=== PATIENT | female | born 1985 | race African-American/Black ===

== ENCOUNTER 2017-12-12 05:44 | Inpatient (IN) | payer MEDICAID, OTHER ==
[~2017-12-12] VITALS: Ht 166.1 cm; Wt 66.1 kg
--- NOTE | 2017-12-12 06:08 | PD ---
HPI Chief Complaint: BA Time Seen by Provider: 06:03 Travel History International Travel<30 days: No Contact w/Intl Traveler<30days: No Traveled to known affect area: No History of Present Illness HPI This is a 32-year-old female who self reports a history of schizoaffective disorder. She presents under [place] act initiated by [facility]'s office. According her paperwork, "mohan stated that without mental health assistance she would likely harm herself or others. Mohan appears to be very paranoid. She recently started a new medication which appears to not be working. Gena has not been sleeping." Reported the patient takes trazodone and Abilify as well as another unknown medication. It is uncertain who prescribes her medications. She does not remember the last time that she slept. She is very disorganized in her thought pattern and appears to be responding to internal stimuli. She does report during examination that she frequently uses several different illicit substances such as Criss, crack, cocaine. She has no medical complaints at this time. [facility] Social History Alcohol Use: Yes (Unknown) Tobacco Use: Yes (Unknown) Substance Use: Yes Allergies-Medications (Allergen,Severity, Reaction): Coded Allergies: No Known Allergies (Unverified , 12/12/17) Reported Meds & Prescriptions Reported Meds & Active Scripts Active Review of Systems Except as stated in HPI: all other systems reviewed are Neg Physical Exam Narrative GENERAL: Well-developed well-nourished female no acute distress SKIN: Warm and dry. HEAD: Atraumatic. Normocephalic. EYES: Pupils equal and round. No scleral icterus. No injection or drainage. ENT: No nasal bleeding or discharge. Mucous membranes pink and moist. NECK: Trachea midline. No JVD. CARDIOVASCULAR: Regular rate and rhythm. No murmur appreciated. RESPIRATORY: No accessory muscle use. Clear to auscultation. Breath sounds equal bilaterally. GASTROINTESTINAL: Abdomen soft, non-tender, nondistended. Hepatic and splenic margins not palpable. MUSCULOSKELETAL: No obvious deformities. No clubbing. No cyanosis. No edema. NEUROLOGICAL: Awake and alert. No obvious cranial nerve deficits. Motor grossly within normal limits. Normal speech. PSYCHIATRIC: Disorganized thought process, rapid speech, insight and judgment impaired. Data Data Last Documented VS Orders Orders Olanzapine Inj (Zyprexa Inj) (12/12/17 06:15) Complete Blood Count With Diff (12/12/17 06:04) Comprehensive Metabolic Panel (12/12/17 06:04) Thyroid Stimulating Hormone (12/12/17 06:04) Ed Urine Pregnancytest Poc (12/12/17 06:04) Psych Screen (12/12/17 06:04) Drug Screen, Random Urine (12/12/17 06:04) Alcohol (Ethanol) (12/12/17 06:04) Diet Regular Basic (12/12/17 Lunch) Admit Order (Ed Use Only) (12/12/17 13:59) Admit To Inpatient Psych (12/12/17 ) Code Status (12/12/17 13:59) Vital Signs (Adult) MICHAEL.Q12H.E (12/12/17 13:59) Activity Oob Ad Cora (12/12/17 13:59) Level Of Observation (Psych) (12/12/17 13:59) Acetaminophen (Tylenol) (12/12/17 14:00) Magnesium Hydroxide Liq (Milk Of Magnesi (12/12/17 14:00) Al-Mag Hy-Si 40-40-4 Mg/Ml Liq (Mag-Al P (12/12/17 14:00) Nicotine 21 Mg Patch.24 Hr (Habitrol 21 (12/12/17 14:00) Basic Metabolic Panel (Bmp) (12/13/17 06:00) Lipid Profile (12/13/17 06:00) Hemoglobin (Hgb) A1c (12/13/17 06:00) Remove Old Patch (12/13/17 09:00) Labs Laboratory Tests Test 12/12/17 08:00 12/12/17 08:15 Urine Opiates Screen NEG Urine Barbiturates Screen POS Urine Amphetamines Screen NEG Urine Benzodiazepines Screen NEG Urine Cocaine Screen NEG Urine Cannabinoids Screen POS White Blood Count 7.6 TH/MM3 Red Blood Count 4.09 MIL/MM3 Hemoglobin 12.9 GM/DL Hematocrit 38.5 % Mean Corpuscular Volume 94.2 FL Mean Corpuscular Hemoglobin 31.6 PG Mean Corpuscular Hemoglobin Concent 33.6 % Red Cell Distribution Width 13.8 % Platelet Count 287 TH/MM3 Mean Platelet Volume 8.8 FL Neutrophils (%) (Auto) 63.9 % Lymphocytes (%) (Auto) 28.2 % Monocytes (%) (Auto) 6.4 % Eosinophils (%) (Auto) 0.5 % Basophils (%) (Auto) 1.0 % Neutrophils # (Auto) 4.8 TH/MM3 Lymphocytes # (Auto) 2.1 TH/MM3 Monocytes # (Auto) 0.5 TH/MM3 Eosinophils # (Auto) 0.0 TH/MM3 Basophils # (Auto) 0.1 TH/MM3 CBC Comment DIFF FINAL Differential Comment Blood Urea Nitrogen 6 MG/DL Creatinine 0.83 MG/DL Random Glucose 94 MG/DL Total Protein 8.1 GM/DL Albumin 4.3 GM/DL Calcium Level 9.2 MG/DL Alkaline Phosphatase 69 U/L Aspartate Amino Transf (AST/SGOT) 24 U/L Alanine Aminotransferase (ALT/SGPT) 24 U/L Total Bilirubin 0.3 MG/DL Sodium Level 139 MEQ/L Potassium Level 4.0 MEQ/L Chloride Level 103 MEQ/L Carbon Dioxide Level 29.4 MEQ/L Anion Gap 7 MEQ/L Estimat Glomerular Filtration Rate 95 ML/MIN Thyroid Stimulating Hormone 3rd Gen 3.030 uIU/ML Ethyl Alcohol Level LESS THAN 3 MG/DL [facility] Medical Decision Making Medical Screen Exam Complete: Yes Emergency Medical Condition: Yes Medical Record Reviewed: Yes Differential Diagnosis Bipolar disorder versus schizoaffective disorder versus schizophrenia versus substance-induced mood disorder versus sympathomimetic syndrome versus medication noncompliance Narrative Course 32-year-old female presents under [place] act for psychiatric evaluation. She has rapid pressured speech, disorganized thought process. She will be given Zyprexa Mental health screening discussed with the patient. Psychiatric screen ordered. Diagnosis Primary Impression: Medical clearance for psychiatric admission Scripts [place] Carbonate ([place] Carbonate) 300 Mg Tab 600 MG PO Q12HR for mental health, #120 TAB 0 Refills Prov: Bryn Patel MD 12/20/17 Aripiprazole (Aripiprazole) 20 Mg Tab 20 MG PO DAILY for mental health, #30 TAB 0 Refills Prov: Bryn Patel MD 12/20/17 Delvis Murillo Dec 12, 2017 06:08
[2017-12-12] MEDS ORDERED: OLANZapine IM 10 MG VIAL IM ONE ×3 (06:15→21:15)
[2017-12-12 06:20] VITALS: BP 129/66; PULSE 88; RESP 16; TEMP 98.9; O2SAT 98
[2017-12-12 08:20] VITALS: BP 128/89; PULSE 90; RESP 16; TEMP 98.6; O2SAT 100
[2017-12-12 08:38] LABS: AUTOMATED NEUTROPHIL # 4.8 TH/MM3 (1.8-7.7); BASOPHIL # 0.1 TH/MM3 (0-0.2); EOSINOPHIL % 0.5 % (0.0-4.0); HEMATOCRIT 38.5 % (35.0-46.0); HEMOGLOBIN 12.9 GM/DL (11.6-15.3); LYMPH % 28.2 % (9.0-44.0); LYMPHOCYTE # 2.1 TH/MM3 (1.0-4.8); MEAN CELL VOLUME 94.2 FL (80.0-100.0); MEAN CORPUSCULAR HEMOGLOBIN 31.6 PG (27.0-34.0); MEAN CORPUSCULAR HGB CONC 33.6 % (32.0-36.0); MEAN PLATELET VOLUME 8.8 FL (7.0-11.0); MONO % 6.4 % (0.0-8.0); MONOCYTE # 0.5 TH/MM3 (0-0.9); NEUT % 63.9 % (16.0-70.0); PLATELET COUNT 287 TH/MM3 (150-450); RED BLOOD COUNT 4.09 MIL/MM3 (4.00-5.30); RED CELL DISTRIBUTION WIDTH 13.8 % (11.6-17.2); WHITE BLOOD COUNT 7.6 TH/MM3 (4.0-11.0)
[2017-12-12 09:05] LABS: ALBUMIN 4.3 GM/DL (3.4-5.0); AST (GOT) 24 U/L (15-37); BICARBONATE 29.4 MEQ/L (21.0-32.0); BLOOD UREA NITROGEN 6 MG/DL (7-18); CALCIUM 9.2 MG/DL (8.5-10.1); CHLORIDE 103 MEQ/L (98-107); CREATININE 0.83 MG/DL (0.50-1.00); GLOMERULAR FILTRATION RATE 95 ML/MIN (>89); GLUCOSE,RANDOM 94 MG/DL (74-106); SODIUM (NA) 139 MEQ/L (136-145)
[2017-12-12 09:06] LABS: ALT (GPT) 24 U/L (10-53)
[2017-12-12 09:16] LABS: ALKALINE PHOSPHATASE 69 U/L (45-117); TOTAL BILIRUBIN ADULT 0.3 MG/DL (0.2-1.0); TOTAL PROTEIN 8.1 GM/DL (6.4-8.2)
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
[2017-12-12] MEDS ORDERED: MAGNESIUM HYDROXIDE SUSP 30 ML CUP PO PRN (14:00)
[2017-12-12] MEDS ORDERED: ALUMINUM/MAGNESIUM/SIMETH 30 ML CUP PO PRN (14:00)
[2017-12-12] MEDS: NICOTINE 21 MG/24 HR PATCH T-DERMAL SCH (14:00)
[2017-12-12] MEDS ORDERED: ACETAMINOPHEN 325 MG TAB PO PRN (14:00)
[2017-12-12 16:57] VITALS: BP 125/85; PULSE 81; RESP 18; TEMP 98; O2SAT 99
[2017-12-12] MEDS: REMOVE OLD PATCH T-DERMAL SCH (18:16)
[2017-12-12] MEDS ORDERED: diphenhydrAMINE HCL 50 MG/ML VIAL ONE (20:52)
[2017-12-12] MEDS ORDERED: diphenhydrAMINE HCL 50 MG/ML VIAL IM ONE (21:15)
[2017-12-13] MEDS ORDERED: LORazepam 2 MG/ML VIAL ONE (00:13)
[2017-12-13] MEDS ORDERED: HALOPERIDOL LACTATE 5 MG/ML AMP ONE (00:14)
[2017-12-13] MEDS ORDERED: HALOPERIDOL LACTATE 5 MG/ML AMP IM ONE (00:30)
[2017-12-13] MEDS ORDERED: diphenhydrAMINE HCL 50 MG/ML VIAL IM ONE (00:30)
[2017-12-13] MEDS ORDERED: LORazepam 2 MG/ML VIAL IM ONE (00:30)
[2017-12-13 06:40] VITALS: BP 112/66; PULSE 114; RESP 16; TEMP 97; O2SAT 100
[2017-12-13] MEDS: NICOTINE 21 MG/24 HR PATCH T-DERMAL SCH (09:00)
--- NOTE | 2017-12-13 11:37 | HHI.HP ---
Provisional Diagnosis Admission Date Dec 12, 2017 at 14:02 [place] I. 1. Schizoaffective disorder, other type 2. Urine toxicology positive for barbiturates and cannabinoids [place] II. Deferred Certification of Person's Competence To Provide Express and Informed Consent I have personally examined Elizabeth Preston , a person being served at [facility] on, Dec 13, 2017 11:37. Express and informed consent means consent voluntarily given in writing, by a competent person, after sufficient explanation and disclosure of the subject matter involved to enable the person to make a knowing and willful decision without any element of force, fraud, deceit, duress, or other form of constraint or coercion. This person is 18 years of age or older, is not now known to be incompetent to consent to treatment with a guardian advocate, and does not have a health care surrogate or proxy currently making medical treatment decisions. I have found this person to be one of the following: [] Competent to provide express and informed consent, as defined above, for voluntary admission to this facility and is competent to provide express and informed consent for treatment. He/she has the consistent capacity to make well reasoned, willful, and knowing decisions concerning his or her medical or mental health treatment. The person fully and consistently understands the purpose of the admission for examination/placement and is fully capable of personally exercising all rights [place] [X] Incompetent to provide express and informed consent to voluntary admission, and this is incompetent to provide express and informed consent to treatment. The person must be transferred to involuntary status and a petition for a guardian advocate filed with the Circuit Court. [] Refusing to provide express and informed consent to voluntary admission but is competent to provide express and informed consent for treatment. The person must be discharged or transferred to involuntary status. Form shall be completed within 24 hours of a person's arrival at the receiving facility and filed in the clinical record of each person: 1. Admitted on a voluntary basis 2. Permitted to provide express and informed consent to his/her own treatment 3. Allowed to transfer from involuntary to voluntary status 4. Prior to permitting a person to consent to his or her own treatment after having been previously found incompetent to consent to treatment. History of Present Illness Capacity: Lacks Capacity Psych Chief Complaint: Psychosis HPI Ms. Preston is a 32-year-old female with a history of schizoaffective disorder who presents under Milton Act from [facility] alleging paranoia. Patient was evaluated by SIRENA Macedo in the ED, and I reviewed her note. Reviewing the electronic medical record, it appears this is patient's first visit to [facility]. I endeavored to see patient with nurse, but patient twice refused to come with staff to be interviewed by this provider. Per RN, behavior on the unit has been considerably disturbed. She was noted to be threatening staff and exposing herself overnight. She has required 2 ETO orders, one for Haldol and one for Zyprexa, since arriving on the interview. Psychiatric interview limited as patient is uncooperative. Obtained collateral information from patient's mother Christi Bedoya at [phone]: She notes that the patient has a history of schizoaffective disorder diagnosed ~ 3 years ago. She follows psychiatrically at [facility] and was apparently recently hospitalized on their inpatient unit and started on Abilify Maintena on 12/04 with oral supplementation, although mother does not think this is helping. She had previously done well with PO Abilify per mother's report. Mother notes that the patient has been hospitalized 4 times since September. Mother reports that patient is adherent with psychotropic medications including oral Abilify supplementation but they do not seem to be helping. Mother notes that the patient has not been sleeping. She has no allergies to medications but may have experienced some motor side effects from antipsychotic treatment in the past. She does have a history of suicide attempts in the past. Regarding family history, mother notes that the patient's maternal grandmother has bipolar disorder and she has a brother with primary psychotic disorder. There is no family history of suicide that mother is aware of. 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 Regarding social history: Patient resides independently in an apartment across the hallway from mother's apartment. Mother is willing to act as healthcare surrogate and is in agreement with the plan as outlined below. We discuss unit routines such as visitation and also discuss legal status and Milton act court. Review of Systems ROS Limitations: Uncooperative Other Unable to obtain ROS as patient is uncooperative Past Psych History Psychological trauma history Unable to obtain, patient uncooperative Violence risk - others (6 mos) Concern for elevated risk. Violence risk - self (6 mos) Concern for elevated risk Substance Abuse History Drugs/Alcohol past 12 months Unable to obtain from patient, uncooperative Past Family Social History Coded Allergies: No Known Allergies (Unverified , 12/12/17) Past Medical History Unable to obtain from patient, uncooperative Current Medications Medications (Trade) Dose Ordered Sig/Yvan Route Start Time Stop Time Status Last Admin (Tylenol) 650 mg Q4H PRN PO 12/12/17 14:00 (Milk Of Magnesia Liq) 30 ml DAILY PRN PO 12/12/17 14:00 (Mag-Al Plus Susp Liq) 30 ml Q6H PRN PO 12/12/17 14:00 (Habitrol 21 Mg Patch.24 Hr) 1 patch DAILY T-DERMAL 12/12/17 14:00 12/12/17 14:00 Miscellaneous Information 1 DAILY T-DERMAL 12/13/17 09:00 Family Psych History Unable to obtain from patient, uncooperative Social History Unable to obtain from patient, uncooperative Patient's Strengths (min. 2) Supportive mother. In a monitored setting. Physical Exam Unable to obtain, uncooperative. ED provider PE reviewed. Labs and vitals reviewed: Vital Signs Vital Signs Date Time Temp Pulse Resp B/P (MAP) Pulse Ox O2 Delivery O2 Flow Rate FiO2 12/13/17 06:40 97.0 114 16 112/66 (81) 100 12/12/17 08:20 Room Air Lab Results Item Value Date Time White Blood Count 7.6 TH/MM3 12/12/17 0815 Hemoglobin 12.9 GM/DL 12/12/17 0815 Platelet Count 287 TH/MM3 12/12/17 0815 Sodium Level 139 MEQ/L 12/12/17 0815 Potassium Level 4.0 MEQ/L 12/12/17 0815 Chloride Level 103 MEQ/L 12/12/17 0815 Carbon Dioxide Level 29.4 MEQ/L 12/12/17 0815 Blood Urea Nitrogen 6 MG/DL L 12/12/17 0815 Creatinine 0.83 MG/DL 12/12/17 0815 Estimat Glomerular Filtration Rate 95 ML/MIN 12/12/17 0815 Aspartate Amino Transf (AST/SGOT) 24 U/L 12/12/17 0815 Alanine Aminotransferase (ALT/SGPT) 24 U/L 12/12/17 0815 Alkaline Phosphatase 69 U/L 12/12/17 0815 Thyroid Stimulating Hormone 3rd Gen 3.030 uIU/ML 12/12/17 0815 Urine Amphetamines Screen NEG 12/12/17 0800 Urine Barbiturates Screen POS H 12/12/17 0800 Urine Opiates Screen NEG 12/12/17 0800 Urine Benzodiazepines Screen NEG 12/12/17 0800 Urine Cocaine Screen NEG 12/12/17 0800 Urine Cannabinoids Screen POS H 12/12/17 0800 Ethyl Alcohol Level LESS THAN 3 MG/DL 12/12/17 0815 ED [id number] test negative. Patient refused EKG. Mental Status Examination Appearance: Disheveled Consciousness: Alert Affect: Other (dysphoric) Hallucination Type: Other (appears internally stimulated) Insight: Poor (suspect poor) Judgment: Poor (suspect poor) Mental Status Exam Remarks Limited MSE, patient uncooperative. Assessment & Plan Problem List: (1) Other schizoaffective disorders ICD Codes: F25.8 - Other schizoaffective disorders Assessment & Plan 32-year-old female with psychiatric history as detailed above who presents under Milton act. Patient is uncooperative with evaluation today but behavior on the unit has been quite disturbed, and she has required two ETOs since arriving on the unit. Collateral from mother concerning for worsening of patient's reported schizoaffective disorder, and mother reports patient has had 4 hospitalizations since the beginning of this year. Patient requires psychiatric hospitalization at this time for safety, observation and stabilization. Admit inpatient. Involuntary status. I will endeavor to have the patient participate in some degree of interview with me and thereafter complete first opinion and plan to consult for second opinion, and the weight of evidence is sufficient to support involuntary hospitalization at this point. I will request healthcare surrogate/guardian advocate as patient is unable to negotiate treatment at this point, I suspect as a consequence of psychiatric symptoms. For management of severe agitation, Zyprexa 10 mg IM every 12 hours p.r.n.. Ativan as needed for anxiety. Benadryl as needed for EPS/insomnia. Provenance of barbiturates in [place] is unclear; start CIWA with Ativan for management of any barbiturate withdrawal. R/B/A for meds discussed with patient 's healthcare surrogate. Vitals every shift. Counselor to see. Disposition planning. Estimated length of stay: 7-9 days. Discharge Planning Pending psychiatric stabilization Request HC Surrog/Guard Advoc?: Yes Kareem Bunch MD Dec 13, 2017 11:37
[2017-12-13] MEDS ORDERED: OLANZapine IM 10 MG VIAL IM PRN (14:00)
[2017-12-13] MEDS ORDERED: LORazepam 1 MG TAB PO PRN (14:00)
[2017-12-13] MEDS ORDERED: LORazepam 2 MG/ML VIAL IM PRN (14:00)
[2017-12-13] MEDS: diphenhydrAMINE HCL 50 MG/ML VIAL IM PRN (14:15)
[2017-12-13] MEDS ORDERED: FLUMAZENIL 0.5 MG/5 ML VIAL IV PUSH PRN (14:30)
[2017-12-13] MEDS ORDERED: LORazepam 2 MG/ML VIAL IV PUSH PRN ×4 (14:30)
[2017-12-13] MEDS ORDERED: LORazepam 2 MG/ML VIAL IM STA (15:47)
[2017-12-13] MEDS ORDERED: diphenhydrAMINE HCL 50 MG/ML VIAL IM STA (15:47)
[2017-12-13] MEDS ORDERED: HALOPERIDOL LACTATE 5 MG/ML AMP IM STA (15:47)
[2017-12-13 18:09] VITALS: PULSE 100; RESP 17; TEMP 97.1; O2SAT 99
[2017-12-13] MEDS: LORazepam 2 MG TAB PO PRN (20:52)
[2017-12-14] MEDS: diphenhydrAMINE HCL 50 MG CAP PO PRN (01:16)
[2017-12-14] MEDS: LORazepam 2 MG TAB PO PRN ×5 (01:16→21:15)
[2017-12-14 05:50] VITALS: BP 122/88; PULSE 86; RESP 18; TEMP 98.3; O2SAT 99
[2017-12-14] MEDS: REMOVE OLD PATCH T-DERMAL SCH (09:00)
[2017-12-14] MEDS: NICOTINE 21 MG/24 HR PATCH T-DERMAL SCH (09:00)
--- NOTE | 2017-12-14 09:32 | HHI.PYPN ---
Subjective Chief Complaint: Psychosis Remarks Patient seen and examined in the day area. Chart reviewed. Case discussed with nursing staff. Ongoing issues with agitation and inappropriate behavior throughout the night and into this morning. Case discussed in treatment team. On my examination today, the patient does agree to participate in interview. She is quite disheveled. She appears internally preoccupied. She is paranoid. She exhibits a racial preoccupation. She endeavors to split staff and peers. Affect is irritable and dysphoric. No side effects from medications. No physical complaints. Spoke with patient's mother/healthcare surrogate and obtained consent for medication changes as detailed below. Review of Systems ROS Limitations: Psychotic, Poor Historian Except as stated in HPI: all other systems reviewed are Neg Mental Status Examination Appearance: Disheveled Consciousness: Alert Orientation: Person, Place (at least) Motor Activity: Other (no motor abnormalities noted) Speech: Unremarkable Language: [place] Attention and Concentration: Inadequate Memory: Impaired (psychosis interferes) Mood: Other (dysphoric) Affect: Irritable, Other (dysphoric) Thought Process & Associations: Tangential Thought Content: Hallucinations, Delusional Hallucination Type: Other (internally stimulated) Delusion Type: Paranoid Suicidal Ideation: No (unreliable to contract for safety) Homicidal Ideation: No (unreliable to contract for safety) Insight: Poor Judgment: Poor Results Labs Labs reviewed Vitals/IOs Vital Signs Date Time Temp Pulse Resp B/P (MAP) Pulse Ox O2 Delivery O2 Flow Rate FiO2 12/14/17 05:50 98.3 86 18 122/88 (99) 99 12/12/17 08:20 Room Air Assessment & Plan Problem List: (1) Other schizoaffective disorders ICD Codes: F25.8 - Other schizoaffective disorders Assessment & Plan Initiate oral Abilify to supplement Abilify Maintena, reportedly administered ~ 10 days ago. Add lithium 300mg BID for affective component of patient's illness. GFR and TSH within normal limits. ED [id number] test negative. Plan to check a lithium level after the weekend. Replace Zyprexa p.r.n. with Thorazine 100mg IM p.r.n. severe agitation as the former does not seem to be effective. Titrate Ativan p.r.n. to 2mg/dose. R/B/A for med changes discussed with mother. Continue to monitor on high acuity unit. Continue other medications and care as ordered. Justification for Cont. Inpt. Medication changes. Impairment in reality construction. High risk for decompensation in less restrictive environment. Discharge Planning Pending psychiatric stabilization. Request HC Surrog/Guard Advoc?: Yes Kareem Bunch MD Dec 14, 2017 09:32
--- NOTE | 2017-12-14 09:50 | PD.TTN ---
Patient Problems 1. Discharge planning 2. Medication compliance 3. Knowledge deficit 4. Lack of coping skills Progress Toward Goals Provider Present: Dr. Chris Bunch Provider Input: Dr. Bunch's had his treatment team to discuss patient's treatment plan, medication, and discharge plan. Patient is selectively mute, agitated unable to access due to lack of participation. Nurse(s) Input: Patient's nurse reports patient is difficult, difiant, oppositional needing several ETO's yesterday. Psychiatric Counselors Present: Gemma Bojorquez [facility] Psych Therapist Input: Patient presents agitated, iritable, no wanting to talk. Group Spec/RT/OT/GRIER Present: MARVEL Cat Group Spec/RT/OT/GRIER Input: Patient does not attend groups. Gemma Bojorquez [facility] Dec 14, 2017 09:50
[2017-12-14] MEDS: ARIPiprazole 10 MG TAB PO SCH (11:33)
[2017-12-14] MEDS: LITHIUM CARBONATE 300 MG TAB PO SCH ×2 (11:33→21:00)
--- NOTE | 2017-12-14 11:41 | PD.PSY.CON ---
Provisional Diagnosis Admission Date Dec 12, 2017 at 14:02 [place] I. 1. Schizoaffective disorder, other type 2. Urine toxicology positive for barbiturates and cannabinoids [place] II. Deferred History of Present Illness Service Psychiatry Consult Requested By Dr. Bunch Reason for Consult Second opinion Primary Care Physician Unknown HPI Ms. Preston is a 32-year-old female with a history of schizoaffective disorder who presents under [place] Act from [facility] alleging paranoia. Patient was evaluated by SIRENA Macedo in the ED, and I reviewed her note. Reviewing the electronic medical record, it appears this is patient's first visit to [facility]. I endeavored to see patient with nurse, but patient twice refused to come with staff to be interviewed by this provider. Per RN, behavior on the unit has been considerably disturbed. She was noted to be threatening staff and exposing herself overnight. She has required 2 ETO orders, one for Haldol and one for Zyprexa, since arriving on the interview. Psychiatric interview limited as patient is uncooperative. Obtained collateral information from patient's mother Christi Bedoya at [phone]: She notes that the patient has a history of schizoaffective disorder diagnosed ~ 3 years ago. She follows psychiatrically at [facility] and was apparently recently hospitalized on their inpatient unit and started on Abilify Maintena on 12/04 with oral supplementation, although mother does not think this is helping. She had previously done well with PO Abilify per mother's report. Mother notes that the patient has been hospitalized 4 times since September. Mother reports that patient is adherent with psychotropic medications including oral Abilify supplementation but they do not seem to be helping. Mother notes that the patient has not been sleeping. She has no allergies to medications but may have experienced some motor side effects from antipsychotic treatment in the past. She does have a history of suicide attempts in the past. Regarding family history, mother notes that the patient's maternal grandmother has bipolar disorder and she has a brother with primary psychotic disorder. There is no family history of suicide that mother is aware of. 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 Regarding social history: Patient resides independently in an apartment across the hallway from mother's apartment. Mother is willing to act as healthcare surrogate and is in agreement with the plan as outlined below. We discuss unit routines such as visitation and also discuss legal status and [employer] act court. 12/14/17 - Second opinion Patient is a 32-year-old -[place] woman, who carries a diagnosis of schizoaffective disorder previous psychiatric admissions, who was recently brought in under [place] act that stated the patient likely to harm herself and others, appearing to be very paranoid and has not been sleeping which patient was admitted to the inpatient psychiatry for further evaluation and management. Patient was observed on the unit to be intrusive, labile, yelling at times but during interview was, cooperative. Patient was adherent to medications morning. Patient states that she was "trippin" at her aunts residence as well as feeling paranoid believing that someone was outside and at rest and called the police which then brought patient into the hospital. Patient states she had been feeling paranoid for a while, no one specific but in general. Patient states that she has an outpatient psychiatrist, Dr. Munguia, but feels he/she has not been helpful. She denies having any suicide ideations, denies any perceptional services but continues to have some paranoid ideations. Past Family Social History Coded Allergies: No Known Allergies (Unverified , 12/12/17) Current Medications Medications (Trade) Dose Ordered Sig/Yvan Route Start Time Stop Time Status Last Admin (Tylenol) 650 mg Q4H PRN PO 12/12/17 14:00 (Milk Of Magnesia Liq) 30 ml DAILY PRN PO 12/12/17 14:00 (Mag-Al Plus Susp Liq) 30 ml Q6H PRN PO 12/12/17 14:00 (Habitrol 21 Mg Patch.24 Hr) 1 patch DAILY T-DERMAL 12/12/17 14:00 12/12/17 14:00 Miscellaneous Information 1 DAILY T-DERMAL 12/13/17 09:00 (Benadryl) 50 mg Q6H PRN PO 12/13/17 14:00 12/14/17 01:16 (Benadryl Inj) 50 mg Q6H PRN IM 12/13/17 14:00 12/13/17 14:15 (Romazicon Inj) 0.2 mg Q1M PRN IV PUSH 12/13/17 14:30 (Ativan) 1 mg Q4H PRN PO 12/13/17 14:30 (Ativan Inj) 1 mg Q4H PRN IV PUSH 12/13/17 14:30 (Ativan) 2 mg Q2H PRN PO 12/13/17 14:30 12/14/17 01:16 (Ativan Inj) 2 mg Q2H PRN IV PUSH 12/13/17 14:30 (Ativan Inj) 2 mg Q1H PRN IV PUSH 12/13/17 14:30 (Ativan Inj) 2 mg Q15M PRN IV PUSH 12/13/17 14:30 (Ativan) 2 mg Q6H PRN PO 12/14/17 14:00 12/14/17 08:40 (Ativan Inj) 2 mg Q6H PRN IM 12/14/17 14:00 (Thorazine Inj) 100 mg Q6H PRN IM 12/14/17 09:45 (Lithotabs) 300 mg Q12HR PO 12/14/17 09:45 (Abilify) 10 mg DAILY PO 12/14/17 09:45 Patient's Strengths (min. 2) Supportive mother. In a monitored setting. Physical Exam Vital Signs Vital Signs Date Time Temp Pulse Resp B/P (MAP) Pulse Ox O2 Delivery O2 Flow Rate FiO2 12/14/17 05:50 98.3 86 18 122/88 (99) 99 12/12/17 08:20 Room Air Mental Status Examination Appearance: Disheveled Consciousness: Alert Motor Activity: Normal gait Speech: Unremarkable Language: Adequate Fund of Knowledge: Inadequate Attention and Concentration: Adequate Memory: Unremarkable Mood: Other ("Okay") Affect: Other (dysphoric) Thought Process & Associations: Other ([place]) Thought Content: Delusional Hallucination Type: None, Other (appears internally stimulated) Delusion Type: Paranoid Suicidal Ideation: No Suicidal Plan: No Suicidal Intention: No Homicidal Ideation: No Homicidal Plan: No Homicidal Intention: No Insight: Poor (suspect poor) Judgment: Poor (suspect poor) Assessment & Plan Problem List: (1) Other schizoaffective disorders ICD Codes: F25.8 - Other schizoaffective disorders Assessment & Plan I have seen and examined this patient, reviewed the documentation, discussed personally with Dr. Bunch, and I agree and concur with his assessment and plan. Consult appreciated. Request HC Surrog/Guard Advoc?: Yes El Scanlon MD Dec 14, 2017 11:41
[2017-12-14 13:10] LABS: BICARBONATE 26.1 MEQ/L (21.0-32.0); BLOOD UREA NITROGEN 13 MG/DL (7-18); CALCIUM 9.1 MG/DL (8.5-10.1); CHLORIDE 103 MEQ/L (98-107); CREATININE 0.87 MG/DL (0.50-1.00); GLOMERULAR FILTRATION RATE 90 ML/MIN (>89); GLUCOSE,RANDOM 120 MG/DL (74-106); SODIUM (NA) 136 MEQ/L (136-145)
[2017-12-14 13:11] LABS: CHOLESTEROL 149 MG/DL (120-200)
[2017-12-14 13:13] LABS: CHOLESTEROL/ HDL RATIO 2.71 RATIO; HDL CHOLESTEROL 54.8 MG/DL (40.0-60.0); LDL CHOLESTEROL 84 MG/DL (0-99); TRIGLYCERIDES 49 MG/DL (42-150)
[2017-12-14 18:00] VITALS: BP 108/73; PULSE 123; RESP 16; TEMP 98.5; O2SAT 98
[2017-12-14 19:42] LABS: HEMOGLOBIN A1C 4.5 % (4.3-6.0)
[2017-12-14] MEDS: LORazepam 2 MG/ML VIAL IM PRN (22:00)
[2017-12-15] MEDS: LORazepam 2 MG TAB PO PRN (02:58)
[2017-12-15] MEDS: LITHIUM CARBONATE 300 MG TAB PO SCH ×2 (08:18→20:17)
[2017-12-15] MEDS: ARIPiprazole 10 MG TAB PO SCH (08:18)
[2017-12-15] MEDS: REMOVE OLD PATCH T-DERMAL SCH (08:52)
[2017-12-15] MEDS: NICOTINE 21 MG/24 HR PATCH T-DERMAL SCH (08:52)
--- NOTE | 2017-12-15 16:56 | HHI.PYPN ---
Subjective Chief Complaint: Psychosis Remarks Pt seen and discussed with staff. She has been compliant with care and medications. She denies hallucinations but has been engaging in bizarre behavior and became agitated this afternoon with peer and had to be escorted to room. She is paranoid and somewhat disorganized in thought process. Mental Status Examination Appearance: Disheveled Consciousness: Alert Orientation: Person, Place (at least) Motor Activity: Other (no motor abnormalities noted) Speech: Unremarkable Language: [place] Fund of Knowledge: Inadequate Attention and Concentration: Inadequate Memory: Impaired (psychosis interferes) Mood: Other (dysphoric) Affect: Irritable, Other (dysphoric) Thought Process & Associations: Tangential Thought Content: Hallucinations, Delusional Hallucination Type: Other (internally stimulated) Delusion Type: Paranoid Suicidal Ideation: No (unreliable to contract for safety) Suicidal Plan: No Suicidal Intention: No Homicidal Ideation: No (unreliable to contract for safety) Homicidal Plan: No Homicidal Intention: No Insight: Poor Judgment: Poor Results Vitals/IOs Vital Signs Date Time Temp Pulse Resp B/P (MAP) Pulse Ox O2 Delivery O2 Flow Rate FiO2 12/14/17 18:00 98.5 123 16 108/73 (85) 98 12/12/17 08:20 Room Air Assessment & Plan Problem List: (1) Other schizoaffective disorders ICD Codes: F25.8 - Other schizoaffective disorders Assessment & Plan Continue current tx plan. Estimated LOS: days Justification for Cont. Inpt. psychosis agitation Request HC Surrog/Guard Advoc?: Yes Christine Shukla MD Dec 15, 2017 16:56
[2017-12-15] MEDS: LORazepam 1 MG TAB PO PRN (17:20)
[2017-12-15 18:10] VITALS: BP 125/60; PULSE 111; RESP 17; TEMP 98.8; O2SAT 97
[2017-12-16 05:48] VITALS: BP 125/89; PULSE 106; RESP 19; TEMP 97.9; O2SAT 97
[2017-12-16] MEDS: LITHIUM CARBONATE 300 MG TAB PO SCH ×2 (08:45→20:34)
[2017-12-16] MEDS: ARIPiprazole 10 MG TAB PO SCH (08:45)
[2017-12-16] MEDS: LORazepam 1 MG TAB PO PRN ×2 (08:45→14:29)
[2017-12-16] MEDS: REMOVE OLD PATCH T-DERMAL SCH (08:47)
[2017-12-16] MEDS: NICOTINE 21 MG/24 HR PATCH T-DERMAL SCH (08:48)
[2017-12-16 15:35] VITALS: BP 136/83; PULSE 127; RESP 18; TEMP 96.4; O2SAT 99
--- NOTE | 2017-12-16 16:00 | HHI.PYPN ---
Subjective Chief Complaint: Psychosis Remarks Pt seen and discussed with staff. Last night she slept poorly due to pacing halls and talking to self. Today she has been calmer but has been observed responding to internal stimuli.she reports that mood is better today but she continues to hear AH. She denies side effects. Staff report that pt aggressively postured towards peer (mutual aggression) and staff intervened. Pt calmed and has been able to participate in unit activities. Mental Status Examination Appearance: Disheveled Consciousness: Alert Orientation: Person, Place (at least) Motor Activity: Other (no motor abnormalities noted) Speech: Unremarkable Language: [place] Fund of Knowledge: Inadequate Attention and Concentration: Inadequate Memory: Impaired (psychosis interferes) Mood: Other (dysphoric) Affect: Irritable, Other (dysphoric) Thought Process & Associations: Tangential Thought Content: Hallucinations, Delusional Hallucination Type: Other (internally stimulated) Delusion Type: Paranoid Suicidal Ideation: No (unreliable to contract for safety) Suicidal Plan: No Suicidal Intention: No Homicidal Ideation: No (unreliable to contract for safety) Homicidal Plan: No Homicidal Intention: No Insight: Poor Judgment: Poor Results Vitals/IOs Vital Signs Date Time Temp Pulse Resp B/P (MAP) Pulse Ox O2 Delivery O2 Flow Rate FiO2 12/16/17 15:35 96.4 127 18 136/83 (100) 99 12/12/17 08:20 Room Air Assessment & Plan Problem List: (1) Other schizoaffective disorders ICD Codes: F25.8 - Other schizoaffective disorders Assessment & Plan Continue current tx plan. Estimated LOS: days Justification for Cont. Inpt. impairments in reality testing and impulse control Request HC Surrog/Guard Advoc?: Yes Christine Shukla MD Dec 16, 2017 16:00
[2017-12-16] MEDS: LORazepam 2 MG TAB PO PRN (20:34)
[2017-12-17] MEDS: diphenhydrAMINE HCL 50 MG CAP PO PRN (00:28)
[2017-12-17] MEDS: LORazepam 2 MG TAB PO PRN (02:19)
[2017-12-17 05:47] VITALS: BP 123/78; PULSE 98; RESP 16; TEMP 98.4; O2SAT 97
[2017-12-17] MEDS: NICOTINE 21 MG/24 HR PATCH T-DERMAL SCH ×2 (08:24→09:00)
[2017-12-17] MEDS: LITHIUM CARBONATE 300 MG TAB PO SCH ×2 (08:25→20:47)
[2017-12-17] MEDS: ARIPiprazole 10 MG TAB PO SCH (08:25)
[2017-12-17] MEDS: REMOVE OLD PATCH T-DERMAL SCH (09:00)
--- NOTE | 2017-12-17 09:32 | HHI.PYPN ---
Subjective Chief Complaint: Psychosis Remarks Patient seen and examined. Chart reviewed. Patient has not required a Thorazine IM injection since 12/14. Case discussed with nursing staff who reports patient remains quite paranoid. Case discussed with counselor. Counselor to reach out to patient's mother today. On my examination today, the patient says "I'm not paranoid anymore. I'm nervous because I'm outnumbered. They're trying to do things to keep me here longer. Someone slid information. I am not a man, I am a female." Affect remains fairly labile. She denies any suicidal or homicidal ideation but is unreliable to contract for safety. Appears internally stimulated. No side effects from medications. No physical complaints. Review of Systems ROS Limitations: Psychotic, Poor Historian Except as stated in HPI: all other systems reviewed are Neg Mental Status Examination Appearance: Disheveled (grooming improved somewhat) Consciousness: Alert Orientation: Person, Place (at least) Motor Activity: Other (no abnormal motor movements noted) Speech: Unremarkable Language: Adequate Fund of Knowledge: Adequate Attention and Concentration: Easily Distracted Memory: Impaired (psychosis interferes) Mood: Irritable Affect: Irritable, Labile Thought Process & Associations: Tangential Thought Content: Hallucinations, Delusional Hallucination Type: Other (remains internally stimulated) Delusion Type: Paranoid Suicidal Ideation: No (unreliable to contract for safety) Suicidal Plan: No Suicidal Intention: No Homicidal Ideation: No (unreliable to contract for safety) Homicidal Plan: No Homicidal Intention: No Insight: Poor Judgment: Poor Results Labs Test 12/17/17 06:00 [place] Level 0.3 MEQ/L Labs reviewed. [place] level subtherapeutic. Besides one episode of medication refusal, nonadherence is not suspected. Vitals/IOs Vital Signs Date Time Temp Pulse Resp B/P (MAP) Pulse Ox O2 Delivery O2 Flow Rate FiO2 12/17/17 05:47 98.4 98 16 123/78 (93) 97 Assessment & Plan Problem List: (1) Other schizoaffective disorders ICD Codes: F25.8 - Other schizoaffective disorders Assessment & Plan Inadequate response to current therapy. Titrate oral Abilify to 15 mg daily to target psychotic symptoms. Titrate lithium to 600 mg twice daily for mood stabilization with plans for follow-up lithium level later in the week. Continue to monitor on the high acuity unit. Continue other medications and care as ordered. Justification for Cont. Inpt. Impairment in reality construction. Impairment in social functioning. Medication changes. High risk for decompensation in less restrictive environment. Discharge Planning Pending psychiatric stabilization. Request HC Surrog/Guard Advoc?: Yes Kareem Bunch MD Dec 17, 2017 09:32
[2017-12-17 15:37] VITALS: BP 145/93; PULSE 136; RESP 18; TEMP 98.7; O2SAT 98
[2017-12-17] MEDS: LORazepam 2 MG/ML VIAL IM PRN (22:44)
[2017-12-18 06:22] VITALS: BP 136/87; PULSE 112; RESP 18; TEMP 98.4
[2017-12-18] MEDS ORDERED: ARIPiprazole 15 MG TAB PO SCH (09:00)
[2017-12-18] MEDS: REMOVE OLD PATCH T-DERMAL SCH (09:00)
[2017-12-18] MEDS: LITHIUM CARBONATE 300 MG TAB PO SCH ×2 (09:08→20:15)
[2017-12-18] MEDS: NICOTINE 21 MG/24 HR PATCH T-DERMAL SCH (09:09)
--- NOTE | 2017-12-18 09:35 | PD.TTN ---
Patient Problems 1. Discharge planning 2. Medication compliance 3. Knowledge deficit 4. Lack of coping skills Progress Toward Goals Provider Present: Dr. Chris Bunch Provider Input: 12/18/17 - Patient remains aggressive and oppositional. She required an ETO of Thorazine last evening. Dr. Bunch's had his treatment team to discuss patient's treatment plan, medication, and discharge plan. Patient is selectively mute, agitated unable to access due to lack of participation. Nurse(s) Input: Patient's nurse reports patient is difficult, difiant, oppositional needing several ETO's yesterday. Patient is presently taking [place] and Ailify. Psychiatric Counselors Present: Gemma Bojorquez [facility] Psych Therapist Input: 12/18/17 - Patient remains aggressive and oppositional. Patient presents agitated, iritable, no wanting to talk. Group Spec/RT/OT/GRIER Present: MARVEL Cat Group Spec/RT/OT/GRIER Input: 12/18/17 - Patient does not attend groups. Patient does not attend groups. Discharge Plan SMA 12/18/17 - Patient will return home when stable. Documentation Scribe: LOS Sanders Date Resolved: Dec 18, 2017 [facility]ie Ma [facility] Dec 18, 2017 09:35
--- NOTE | 2017-12-18 09:49 | HHI.PYPN ---
Subjective Chief Complaint: Psychosis Remarks Patient seen and examined in hallway outside of her room. Chart reviewed. Case discussed with nursing staff. Patient had outburst yesterday evening and required Thorazine IM p.r.n. but has been no behavioral problem since then. Case discussed in treatment team. On my exam, patient seems calmer and less paranoid versus our interaction yesterday. She is more relevant in conversation. She denies SI/HI. No side effects from medications. No physical complaints. Review of Systems ROS Limitations: Psychotic, Poor Historian Except as stated in HPI: all other systems reviewed are Neg Mental Status Examination Appearance: Appropriate Consciousness: Alert Orientation: Person, Place (at least) Motor Activity: Other (no motoric abnormalities noted) Speech: Unremarkable Language: Adequate Fund of Knowledge: Adequate Attention and Concentration: Other (attention and concentration are improved) Memory: Impaired (psychosis continues to interfere) Mood: Other (calmer) Affect: Blunt Thought Process & Associations: Other (more organized today) Thought Content: Hallucinations, Delusional Hallucination Type: Other (less internally stimulated) Delusion Type: Paranoid (less paranoid) Suicidal Ideation: No (unreliable to contract for safety) Suicidal Plan: No Suicidal Intention: No Homicidal Ideation: No (unreliable to contract for safety) Homicidal Plan: No Homicidal Intention: No Insight: Poor Judgment: Poor Results Labs Labs reviewed. No new labs. Vitals/IOs Vital Signs Date Time Temp Pulse Resp B/P (MAP) Pulse Ox O2 Delivery O2 Flow Rate FiO2 12/18/17 06:22 98.4 112 18 136/87 (103) 12/17/17 15:37 98 Assessment & Plan Problem List: (1) Other schizoaffective disorders ICD Codes: F25.8 - Other schizoaffective disorders Assessment & Plan Titrate Abilify to target residual psychotic symptoms. Continue increased dose of lithium and plan to check a lithium level later this week. Continue to monitor on the high acuity unit. Continue other medications and care as ordered. Justification for Cont. Inpt. Medication changes. Impairment in reality construction. High risk for decompensation in less restrictive environment. Discharge Planning Pending psychiatric stabilization. Request HC Surrog/Guard Advoc?: Yes Kareem Bunch MD Dec 18, 2017 09:49
[2017-12-18 18:33] VITALS: BP 123/97; PULSE 127; RESP 18; TEMP 97.1; O2SAT 98
[2017-12-18] MEDS: LORazepam 2 MG TAB PO PRN ×3 (20:15→21:15)
[2017-12-19] MEDS: LORazepam 2 MG TAB PO PRN (02:27)
[2017-12-19 06:03] VITALS: BP 135/81; PULSE 108; RESP 18; TEMP 96.7; O2SAT 98
[2017-12-19] MEDS: REMOVE OLD PATCH T-DERMAL SCH (09:00)
[2017-12-19] MEDS: LITHIUM CARBONATE 300 MG TAB PO SCH ×2 (09:00→20:23)
[2017-12-19] MEDS: NICOTINE 21 MG/24 HR PATCH T-DERMAL SCH (09:00)
[2017-12-19] MEDS: LORazepam 2 MG/ML VIAL IM PRN (14:47)
--- NOTE | 2017-12-19 15:55 | HHI.PYPN ---
Subjective Chief Complaint: Psychosis Remarks Patient seen in [place] with nurse Enma, she appears distracted, somewhat irritable. Patient needed when necessary of Ativan about an hour or 2 ago. He still remains intense intrusive. Denies mental illness denies need for medication. She acknowledges prior hospitalizations and medications. Patient scheduled for [facility] [employer] [facility] tomorrow for now continue treatment she has been compliant with her medicine Review of Systems Except as stated in HPI: all other systems reviewed are Neg Mental Status Examination Appearance: Appropriate Consciousness: Alert Orientation: Person, Place (at least) Motor Activity: Other (no motoric abnormalities noted) Speech: Unremarkable Language: Adequate Fund of Knowledge: Adequate Attention and Concentration: Other (attention and concentration are improved) Memory: Impaired (psychosis continues to interfere) Mood: Other (calmer) Affect: Blunt Thought Process & Associations: Other (more organized today) Thought Content: Hallucinations, Delusional Hallucination Type: Other (less internally stimulated) Delusion Type: Paranoid (less paranoid) Suicidal Ideation: No (unreliable to contract for safety) Suicidal Plan: No Suicidal Intention: No Homicidal Ideation: No (unreliable to contract for safety) Homicidal Plan: No Homicidal Intention: No Insight: Poor Judgment: Poor Results Vitals/IOs Vital Signs Date Time Temp Pulse Resp B/P (MAP) Pulse Ox O2 Delivery O2 Flow Rate FiO2 12/19/17 06:03 96.7 108 18 135/81 (99) 98 Assessment & Plan Problem List: (1) Schizoaffective disorder, bipolar type ICD Codes: F25.0 - Schizoaffective disorder, bipolar type Assessment & Plan Estimated LOS: days patient remained psychotic delusional paranoid, patient scheduled for [employer] tomorrow Justification for Cont. Inpt. At this time patient decompensated placed in a lower level of care Discharge Planning To be determined Request HC Surrog/Guard Advoc?: Yes Bryn Patel MD Dec 19, 2017 15:55
[2017-12-19 16:54] VITALS: BP 144/97; PULSE 121; RESP 18; TEMP 99; O2SAT 99
[2017-12-20] MEDS: diphenhydrAMINE HCL 50 MG CAP PO PRN (01:43)
[2017-12-20] MEDS: LORazepam 2 MG/ML VIAL IM PRN (03:38)
[2017-12-20] MEDS: diphenhydrAMINE HCL 50 MG/ML VIAL IM PRN (03:54)
[2017-12-20 05:54] VITALS: BP 138/80; PULSE 86; RESP 18; TEMP 99; O2SAT 100
[2017-12-20] MEDS: LITHIUM CARBONATE 300 MG TAB PO SCH (07:40)
[2017-12-20] MEDS: REMOVE OLD PATCH T-DERMAL SCH (09:00)
[2017-12-20] MEDS: NICOTINE 21 MG/24 HR PATCH T-DERMAL SCH (09:00)
[2017-12-20] MEDS: LORazepam 2 MG TAB PO PRN (09:28)
[2017-12-20] MEDS ORDERED: ARIP1TAB14 PO (11:10)
[2017-12-20] MEDS ORDERED: LITH300T3 PO (11:10)
--- NOTE | 2017-12-20 11:14 | HHI.DS ---
Psychiatry Discharge Summary Inpatient Psychiatric care?: Yes Advance Directive: No Reason Not Provided: Due to Patient Condition Mental Health AdvanceDirective: No Health Care Proxy: No Admission Admission Date Dec 12, 2017 at 14:02 Admission Diagnosis: (1) Schizoaffective disorder, bipolar type ICD Code: F25.0 - Schizoaffective disorder, bipolar type Brief History Ms. Preston is a 32-year-old female with a history of schizoaffective disorder who presents under [place] from [facility] alleging paranoia. Patient was evaluated by SIRENA Macedo in the ED, and I reviewed her note. Reviewing the electronic medical record, it appears this is patient's first visit to [facility]. I endeavored to see patient with nurse, but patient twice refused to come with staff to be interviewed by this provider. Per RN, behavior on the unit has been considerably disturbed. She was noted to be threatening staff and exposing herself overnight. She has required 2 ETO orders, one for Haldol and one for Zyprexa, since arriving on the interview. Psychiatric interview limited as patient is uncooperative. Obtained collateral information from patient's mother Christi Bedoya at : She notes that the patient has a history of schizoaffective disorder diagnosed ~ 3 years ago. She follows psychiatrically at [facility] and was apparently recently hospitalized on their inpatient unit and started on Abilify Maintena on 12/04 with oral supplementation, although mother does not think this is helping. She had previously done well with PO Abilify per mother's report. Mother notes that the patient has been hospitalized 4 times since September. Mother reports that patient is adherent with psychotropic medications including oral Abilify supplementation but they do not seem to be helping. Mother notes that the patient has not been sleeping. She has no allergies to medications but may have experienced some motor side effects from antipsychotic treatment in the past. She does have a history of suicide attempts in the past. Regarding family history, mother notes that the patient's maternal grandmother has bipolar disorder and she has a brother with primary psychotic disorder. There is no family history of suicide that mother is aware of. 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 Regarding social history: Patient resides independently in an apartment across the hallway from mother's apartment. Mother is willing to act as healthcare surrogate and is in agreement with the plan as outlined below. We discuss unit routines such as visitation and also discuss legal status and [place] act court. 12/14/17 - Second opinion Patient is a 32-year-old -[place] woman, who carries a diagnosis of schizoaffective disorder previous psychiatric admissions, who was recently brought in under [place] act that stated the patient likely to harm herself and others, appearing to be very paranoid and has not been sleeping which patient was admitted to the inpatient psychiatry for further evaluation and management. Patient was observed on the unit to be intrusive, labile, yelling at times but during interview was, cooperative. Patient was adherent to medications morning. Patient states that she was "trippin" at her aunts residence as well as feeling paranoid believing that someone was outside and at rest and called the police which then brought patient into the hospital. Patient states she had been feeling paranoid for a while, no one specific but in general. Patient states that she has an outpatient psychiatrist, Dr. Munguia, but feels he/she has not been helpful. She denies having any suicide ideations, denies any perceptional services but continues to have some paranoid ideations. Tobacco Use In Past 30 Days: 5 or More Cigarettes/Day Alcohol Use: Monthly or Less Hospital Course Patient seen today in [place] patient was ordered to be discharged today per [place] court of appeals judge. Patient remained quiet during the [place]. Patient' s mother also appeared there and gave some history about poor compliance medication. However Nurse'S Companion Concetta lift the [place] act and ordered me to discharge patient today patient remains somewhat disorganized who has been no behavior problems overnight. Will discharge patient today per court order with Rx 1 month and referral to [facility] for further care and attention Results Blood Pressure 138 / 80 Vital Signs Date Time Temp Pulse Resp B/P (MAP) Pulse Ox O2 Delivery O2 Flow Rate FiO2 12/20/17 05:54 99.0 86 18 138/80 (99) 100 Laboratory Results Test 12/14/17 12:22 12/17/17 06:00 Cholesterol Level 149 MG/DL (120-200) HDL Cholesterol 54.8 MG/DL (40.0-60.0) Hemoglobin A1c 4.5 % (4.3-6.0) LDL Cholesterol 84 MG/DL (0-99) Triglycerides Level 49 MG/DL (42-150) [place] Level 0.3 MEQ/L (0.5-1.5) Summary of Procedures None done Pending results at discharge: No Medications # of Antipsychotic meds at D/C: 1 Approp Antipsych med options 1 - Minimum of three failed multiple trials of monotherapy. 2 - Documented plan to taper to monotherapy due to previous use of multiple meds OR cross-taper in progress at D/C. 3 - Documentation of augmentation of Clozapine. 4 - Justification other than those listed in allowable values 1-3, document here : Discharge Discharge Date: Dec 20, 2017 Discharge Diagnosis: (1) Schizoaffective disorder, bipolar type Diagnosis: Principal ICD Code: F25.0 - Schizoaffective disorder, bipolar type Pt Condition on Discharge: Stable Discharge Disposition: Discharge Home Discharge Instructions Diet Instructions: As Tolerated, No Restrictions Activities you can perform: Regular-No Restrictions Scheduled Appointment: Sanya Cavanaugh Discharge Time > 30 minutes Mental Status Examination Appearance: Appropriate Consciousness: Alert Orientation: Person, Place (at least) Motor Activity: Other (no motoric abnormalities noted) Speech: Unremarkable Language: Adequate Fund of Knowledge: Adequate Attention and Concentration: Other (attention and concentration are improved) Memory: Impaired (psychosis continues to interfere) Mood: Other (calmer) Affect: Blunt Thought Process & Associations: Other (more organized today) Thought Content: Hallucinations, Delusional Hallucination Type: Other (less internally stimulated) Delusion Type: Paranoid (less paranoid) Suicidal Ideation: No (unreliable to contract for safety) Suicidal Plan: No Suicidal Intention: No Homicidal Ideation: No (unreliable to contract for safety) Homicidal Plan: No Homicidal Intention: No Insight: Poor Judgment: Poor Discharge/Advance Care Plan Health Problems: (1) Schizoaffective disorder, bipolar type Goals to promote your health * To prevent worsening of your condition and complications * To maintain your health at the optimal level Directions to meet your goals Take your medications as prescribed Follow your dietary instruction Follow activity as directed Keep your appointments as scheduled Take your immunizations and boosters as scheduled If your symptoms worsen call your PCP, if no PCP go to Urgent Care Center or Emergency Room For 16/04 questions related to your inpatient stay or results of tests pending at discharge, please contact Dr. Bryn Patel at Smoking is Dangerous to Your Health. Avoid second hand smoking Bryn Patel MD Dec 20, 2017 11:14
== END 2017-12-20 17:18 | disposition home or self-care (01) | DRG 885 ==
LOC: NEPD 05:44 → NEDA 14:02 → H270 16:43
PROVIDERS: ADMIT Psychiatry & Neurology Psychiatry; ATTEND Psychiatry & Neurology Psychiatry
DX: F25.0 Schizoaffective disorder, bipolar type (principal); F13.239 Sedative, hypnotic or anxiolytic dependence with withdrawal, unspecified; F17.210 Nicotine dependence, cigarettes, uncomplicated; Z91.5 Personal history of self-harm; Z81.8 Family history of other mental and behavioral disorders
CPT/HCPCS: 80048; 80053; 80061; 80178; 80307; 83036; 84443; 84703; 85025; 96372; J1200; J1630; J2060; J3230; Q0163